=== PATIENT | female | born 1975 | race Hispanic/Latino ===

== ENCOUNTER 2019-09-06 11:34 | Inpatient (IN) | payer MEDICARE, BC, OTHER ==
[~2019-09-06] VITALS: Ht 160 cm; Wt 71.7 kg
--- NOTE | 2019-09-06 11:00 | NUR ---
received to rm aaox3, denies pain at this time, orient to rm, updated on poc voiced understanding, call light in reach will continue to monitor
[2019-09-06 11:45] VITALS: BP 115/60
[2019-09-06] MEDS ORDERED: DEXTROSE 5%/0.45% SOD CHL 1,000 ML IV ONE (12:00)
[2019-09-06 12:25] LABS: BASOPHILS % 0.5 % (0.0-1.0); EOSINOPHILS # (AUTO) 0.3 (0.0-0.4); EOSINOPHILS % 6.4 % (0.0-6.0); HEMATOCRIT 38.7 % (34.2-44.1); HEMOGLOBIN 12.4 g/dL (12.0-16.0); LYMPHOCYTES # (AUTO) 1.5 (1.0-3.2); LYMPHOCYTES % 33.6 % (18.0-39.1); MEAN CORPUSCULAR HEMOGLOBIN 31.5 pg (28-32); MEAN CORPUSCULAR VOLUME 98.2 fL (81-99); MONOCYTES # (AUTO) 0.3 (0.2-0.8); MONOCYTES % 6.4 % (4.4-11.3); NEUTROPHILS # (AUTO) 2.3 (2.1-6.9); NEUTROPHILS % 52.9 % (38.7-80.0); PLATELET COUNT 256 x10e3/uL (140-360); RED BLOOD COUNT 3.94 x10e6/uL (3.6-5.1); RED CELL DISTRIBUTION WIDTH 13.2 % (11.7-14.4)
[2019-09-06] MEDS ORDERED: ACETAMINOPHEN/CODEINE 300MG - 30MG TAB PO PRN (12:30)
[2019-09-06] MEDS ORDERED: ACETAMINOPHEN 325 MG TAB PO PRN (12:30)
[2019-09-06] MEDS ORDERED: GUAIFENESIN/DEXTROMETHORPHAN LIQD 5 ML UDC PO PRN (12:30)
[2019-09-06] MEDS ORDERED: ALBUTEROL SULFATE HFA 8GM INHALATION AEROSOL INH PRN (12:30)
[2019-09-06] MEDS ORDERED: ONDANSETRON HCL INJ 2MG/ML 2ML 2 MG/ML VIAL IV PRN (12:30)
[2019-09-06] MEDS ORDERED: HYDRALAZINE HCL 20 MG/ML VIAL IV PRN (12:30)
[2019-09-06 12:31] LABS: ALANINE AMINOTRANSFERASE 21 IU/L (0-55); ALBUMIN 3.3 g/dL (3.5-5.0); ALKALINE PHOSPHATASE 63 IU/L (40-150); ANION GAP 12.8 mmol/L (8-16); BLOOD UREA NITROGEN 17 mg/dL (7-26); BUN/CREATININE RATIO 18 (6-25); CALCIUM 8.5 mg/dL (8.4-10.2); CARBON DIOXIDE 24 mmol/L (22-29); CHLORIDE 109 mmol/L (98-107); CREATININE, SERUM 0.92 mg/dL (0.57-1.11); EST GLOMERULAR FILTRATION RATE > 60 ML/MIN (60-); GLUCOSE 90 mg/dL (74-118); POTASSIUM 3.8 mmol/L (3.5-5.1); SODIUM 142 mmol/L (136-145)
[2019-09-06] MEDS ORDERED: ADDERALL 10 MG10 MG PO (13:04)
[2019-09-06] MEDS ORDERED: ATIVAN1 MG PO ×2 (13:04)
[2019-09-06] MEDS ORDERED: COMBIVENT RESPIM4 GM IH (13:04)
[2019-09-06] MEDS ORDERED: BENZONATATE100 MG PO (13:04)
[2019-09-06] MEDS ORDERED: NASONEX17 GM (13:04)
[2019-09-06] MEDS ORDERED: WELLBUTRIN XL300 MG PO (13:04)
[2019-09-06] MEDS ORDERED: CYMBALTA30 MG PO (13:04)
[2019-09-06] MEDS ORDERED: GABAPENTIN300 MG PO (13:04)
[2019-09-06] MEDS ORDERED: TRAZODONE HCL50 MG PO (13:04)
[2019-09-06] MEDS ORDERED: SINGULAIR10 MG PO (13:04)
[2019-09-06] MEDS ORDERED: DESLORATADINE5 MG PO (13:04)
[2019-09-06 13:12] VITALS: BP 115/60
[2019-09-06] MEDS: AZITHROMYCIN 500MG/NS 250 ML 250 ML IV SCH (13:30)
[2019-09-06] MEDS ORDERED: LORAZEPAM 1 MG TAB PO PRN (13:45)
[2019-09-06] MEDS: CEFTRIAXONE SOD 1 GM/NS 50 ML 50 ML IV SCH (14:00)
[2019-09-06] MEDS ORDERED: LORAZEPAM 0.5 MG TAB PO PRN (14:15)
--- NOTE | 2019-09-06 14:34 | NUR ---
consult [id number]
[2019-09-06] MEDS ORDERED: GABAPENTIN 400 MG CAP PO SCH (15:00)
--- NOTE | 2019-09-06 15:29 | Consultation ---
DATE OF CONSULTATION: Pulmonary Critical Care Consultation CHIEF COMPLAINT: Persistent cough and dyspnea. HISTORY OF PRESENT ILLNESS: The patient is a 44-year-old woman. She has a history of prior gastric bypass surgery in 2008 as well as manic depressive illness. She denies any prior history of asthma or respiratory problems. For the past 2 weeks, she has noticed persistent cough. The cough is nonproductive. She also reports dyspnea. She went to see Dr. Galicia about 2 weeks ago and had a chest x-ray that showed pneumonia. She received antibiotics, but has not improved. She returned yesterday and had a CT scan of the chest that showed ground-glass opacities in the lower lobes with septal thickening in the "crazy paving" pattern. Her dyspnea has not improved. She still has a nonproductive cough. She denies any fevers. She had some possible weight loss over the past several weeks. PAST MEDICAL HISTORY: 1. Bipolar illness. 2. No prior history of asthma. 3. No prior history of sarcoidosis. PAST SURGICAL HISTORY: 1. Status post gastric bypass in 2008. 2. Status post breast augmentation. FAMILY HISTORY: History of diabetes and cerebrovascular disease. SOCIAL HISTORY: The patient has been an intermittent smoker over the years. She is not an active drinker. She does not have recent travel. ALLERGIES: THERE ARE NO KNOWN DRUG ALLERGIES. REVIEW OF SYSTEMS: She denies fever. She may have possible weight loss. She reports some cough. She denies chest pain. She has dyspnea on exertion. She does not complain of nausea or vomiting. She has no leg edema. PHYSICAL EXAMINATION: VITAL SIGNS: The patient is afebrile. The blood pressure is 115/60 and saturation is 99% on room air. The pulse is 86 and respiratory rate is 19. HEENT: Shows no facial swelling or erythema. CARDIAC: Reveals a regular rate and rhythm with normal S1 and S2. LUNGS: Auscultation of lungs shows clear breath sounds bilaterally. There is no wheezing. ABDOMEN: Soft, nontender. There is no rebound or guarding. EXTREMITIES: Show no leg edema or calf tenderness. There is no cyanosis or clubbing. SKIN: Shows no rashes. NEUROLOGIC: Shows no focal abnormalities. LABORATORY DATA: White blood cell count is 4.3 and hemoglobin is 12.4. The platelet count is 256. BUN to creatinine ratio is 17 to 0.92. The other electrolytes are within normal limits. Coronavirus is pending. RADIOGRAPHIC DATA: CT scan shows bilateral ground-glass opacities in the lower lobes. Possibilities include viral pneumonia, chronic interstitial lung disease or sarcoidosis. IMPRESSION: 1. Nonspecific interstitial pneumonitis in the lower lobes. 2. Prior gastric bypass surgery. 3. Manic depressive illness. PLAN: 1. Await COVID-19 results. 2. Continue current antibiotics. 3. If COVID-19 is negative, the patient will need an evaluation for sarcoidosis and atypical infections. Fredis Walker MD [facility]/MODL /[id number]
[2019-09-06 15:32] VITALS: BP 98/70
--- NOTE | 2019-09-06 16:15 | Consultation ---
DATE OF CONSULTATION: REASON FOR ADMISSION: Pneumonia. HISTORY OF PRESENT ILLNESS: This patient is a 44-year-old white female, who has been sick for this May with progressive shortness of breath and some cough. No specific fever that can be think of. The patient apparently has been sick for a couple months. She was smoking in April and March, then she quit and then she started to smoke again. She is coming through the emergency room with fever and chills and shortness of breath. The cough is getting progressively worse. She was sent here by her physician. The patient apparently had some psychiatric problems and she is on disability because of that according to her. The patient, who is currently lying in bed comfortably otherwise. Because we have middle of COVID-19, the patient is being admitted to COVID unit while we are awaiting the test for COVID-19. The patient was currently on Rocephin and azithromycin as mentioned above, Neurontin, Ativan, Desyrel, Cymbalta, Tylenol, and Pepcid. PAST MEDICAL HISTORY: Some psychiatric issues and peptic ulcer disease. PAST SURGICAL HISTORY: Denies. ALLERGIES: NKA. SOCIAL HISTORY: There is smoking, but she has tried to quit again. No drug abuse or alcohol abuse. FAMILY HISTORY: Otherwise noncontributory. REVIEW OF SYSTEMS: At the present time, HEENT: There is no headache, visual changes, or hearing changes. GI: There is no nausea. No vomiting. No diarrhea. CARDIAC: There is no arrhythmia. NEURO: No seizure activity. SKIN: There are no other rashes. LABORATORY DATA: Reviewed. It is still pending since I saw the patient immediately after she came from her physician's office, but we have a white count of 4.3, hemoglobin 12, and hematocrit 38. Her sodium 142, potassium 3.8, and creatinine 0.92. I did review the chart again couple hours later this evening for new data and her COVID-19 is still pending. PHYSICAL EXAMINATION: GENERAL: She is currently alert, oriented, does not seem to be in acute distress. VITAL SIGNS: Stable, currently afebrile. HEENT: Not icteric. NECK: Supple. CHEST: Few crackles at the bases. HEART: S1, S2. No S3, S4, or murmur. ABDOMEN: Soft. Bowel sounds present. EXTREMITIES: No edema. SKIN: No rash. IMPRESSION: 1. Shortness of breath and cough. Concerned about community-acquired pneumonia. Obtain blood cultures and chest x-ray. We will put her on Rocephin and azithromycin. 2. obtained coronavirus disease-19 PCR. We will keep on droplet isolation. Nasal swab was sent. 3. History of psychiatric disorder. 4. History of smoking. Discussed against with the patient to quit smoking. Further recommendation depending on the lab and x-ray finding and clinical progress. We will follow. MD GUSTABO Mcgregor/DIANAL /[id number]
[2019-09-06] MEDS: FAMOTIDINE 20 MG TAB PO SCH (16:30)
[2019-09-06] MEDS: GABAPENTIN 400 MG CAP PO SCH (16:35)
--- NOTE | 2019-09-06 16:37 | NUR ---
pt transferred to rm 298, report given to receiving rn, pt left in stable condition with all belongings.
--- NOTE | 2019-09-06 16:38 | NUR ---
Recvd patient from OBS unit via wheelchair. AAOx3, Denies any pain or SOB, ASSISTED HER TO BED, CALL LIGHT IN REACH
[2019-09-06] MEDS ORDERED: GABAPENTIN 300 MG CAP PO SCH (17:00)
--- NOTE | 2019-09-06 19:17 | Diagnostic Imaging Report ---
Examination: Single AP view of the chest. COMPARISON: None. INDICATION: Pneumonia IMPRESSION: Exam limited by soft tissue attenuation. 1. Lines and Tubes: None 2. Lungs are well-inflated. Patchy airspace opacity in the left lower lung, which may represent atelectasis or pneumonia, new from the clinical setting. Rest of the lungs is grossly clear. No effusion. 3. Cardiomediastinal silhouette is normal. Mild central pulmonary venous congestion. 4. No acute bony abnormalities. Signed by: Dr. Darryl Chong M.D. on 09/06/2019 7:14 PM
--- NOTE | 2019-09-06 19:27 | NUR ---
Received change of shift report from AM nurse. Walking rounds completed.
[2019-09-06 20:00] VITALS: BP 102/69
[2019-09-06] MEDS: ENOXAPARIN 30 MG/0.3 ML SYR SC SCH (20:35)
[2019-09-06] MEDS: TRAZODONE HCL 50 MG TAB PO SCH (21:00)
[2019-09-06] MEDS ORDERED: TRAZODONE HCL 50 MG TAB PO SCH (21:00)
[2019-09-06 21:10] VITALS: BP 102/69
[2019-09-07] VITALS (8 sets, daily range): BP systolic 93–106; BP diastolic 56–68
--- NOTE | 2019-09-07 00:35 | NUR ---
Patient received ativan and trazodone for sleep. Given as ordered by MD. Iv to right AC dry and intact. Fluids at 75cc/hr. Continue to monitor.
[2019-09-07] MEDS: CEFTRIAXONE SOD 1 GM/NS 50 ML 50 ML IV SCH ×2 (01:53→14:38)
--- NOTE | 2019-09-07 05:21 | NUR ---
Patient resting quitly at this time. Continue monitor.
[2019-09-07 06:20] LABS: BASOPHILS % 0.4 % (0.0-1.0); EOSINOPHILS # (AUTO) 0.3 (0.0-0.4); EOSINOPHILS % 7.5 % (0.0-6.0); HEMATOCRIT 35.2 % (34.2-44.1); HEMOGLOBIN 11.1 g/dL (12.0-16.0); LYMPHOCYTES # (AUTO) 2.2 (1.0-3.2); LYMPHOCYTES % 48.1 % (18.0-39.1); MEAN CORPUSCULAR HEMOGLOBIN 30.7 pg (28-32); MEAN CORPUSCULAR HGB CONC 31.5 g/dL (31-35); MEAN CORPUSCULAR VOLUME 97.5 fL (81-99); MONOCYTES # (AUTO) 0.4 (0.2-0.8); MONOCYTES % 8.2 % (4.4-11.3); NEUTROPHILS # (AUTO) 1.6 (2.1-6.9); NEUTROPHILS % 35.8 % (38.7-80.0); PLATELET COUNT 243 x10e3/uL (140-360); RED BLOOD COUNT 3.61 x10e6/uL (3.6-5.1); RED CELL DISTRIBUTION WIDTH 13.4 % (11.7-14.4)
[2019-09-07 06:40] LABS: ALANINE AMINOTRANSFERASE 17 IU/L (0-55); ALBUMIN 2.9 g/dL (3.5-5.0); ALBUMIN/GLOBULIN RATIO 1.1 (0.8-2.0); ALKALINE PHOSPHATASE 41 IU/L (40-150); ANION GAP 10.3 mmol/L (8-16); BLOOD UREA NITROGEN 16 mg/dL (7-26); BUN/CREATININE RATIO 22 (6-25); CALCIUM 8.2 mg/dL (8.4-10.2); CARBON DIOXIDE 21 mmol/L (22-29); CHLORIDE 112 mmol/L (98-107); CHOL/HDL RATIO 3.9 (3.0-3.6); CHOLESTEROL 178 MD/DL (0-199); CREATININE, SERUM 0.73 mg/dL (0.57-1.11); EST GLOMERULAR FILTRATION RATE > 60 ML/MIN (60-); GLUCOSE 87 mg/dL (74-118); HDL CHOLESTEROL 46 MG/DL (40-60); LDL CHOLESTEROL 115 MG/DL (60-130); POTASSIUM 3.3 mmol/L (3.5-5.1); SODIUM 140 mmol/L (136-145); TRIGLYCERIDES 83 MG/DL (0-149)
[2019-09-07 07:00] LABS: THYROID STIMULATING HORMONE 0.823 uIU/mL (0.350-4.940)
--- NOTE | 2019-09-07 07:10 | NUR ---
Bedside shift report, patient lying in bed with eyes closed. Respiration even and unlabored without SOB. Call light in reach
[2019-09-07] MEDS: FAMOTIDINE 20 MG TAB PO SCH ×3 (07:30→16:30)
[2019-09-07] MEDS: DULOXETINE HCL 30 MG DELAYED RELEASE PO SCH (09:33)
[2019-09-07] MEDS: ENOXAPARIN 30 MG/0.3 ML SYR SC SCH ×2 (09:34→20:49)
[2019-09-07] MEDS: GABAPENTIN 400 MG CAP PO SCH ×2 (09:34→17:42)
--- NOTE | 2019-09-07 11:58 | Progress Note ---
DATE: SUBJECTIVE: The patient is seen and evaluated with the nurse in her room. Available labs and notes reviewed. Lengthy discussion with the patient, tells me that she has been coughing for couple of months and progressively getting worse. She denied any fever, however, shortness of breath started to get worse. Therefore, the patient came to the hospital. Has a complicated past medical history including bipolar, which has exacerbated for past couple days secondary to loss of her mom and communication issue she has with her father. She has started drinking for past year and started smoking in June after 17 years of being away from smoking, so the patient is admitted. REVIEW OF SYSTEMS: The patient states that her condition may be may be slightly has improved as far as shortness of breath and cough. She is currently on room air without any supplements of oxygen. No nausea, vomiting, fever, chills, or chest pain. PHYSICAL EXAMINATION: VITAL SIGNS: Temperature 97.7, pulse is 84, respirations 16, and blood pressure 102/64. GENERAL: Very pleasant, alert and oriented, comfortable in bed, softly spoken. CV: S1 and S2. CHEST: Equal expansion. Decreased breath sounds. Cough with a deep breath. ABDOMEN: Soft and obese, nontender. HEENT: Moist. No pallor. No JVD. EXTREMITIES: Moves all. No acute finding. MEDICATIONS: Reviewed and as far as Infectious Disease point of view, the patient is on Zithromax and Rocephin. LABORATORY STUDIES: White blood cells of 4.53, hemoglobin 11.1, and platelet 243. Sodium 140, potassium 3.3, and creatinine 0.73. Serology; coronavirus PCR 09/06/2019, not detected. Influenza A and B antigen are negative. RADIOLOGY STUDIES: She had outside CAT scan per my discussion with the patient and attending, however, chest x-ray yesterday from here shows no acute bony abnormalities. Her lungs are well infiltrated. Patchy airspace opacity in the left lower lungs, which may represent atelectasis or pneumonia. New from the clinical setting. Rest of the lungs are grossly clear. No effusion. Also showed cardiomediastinal silhouette is normal, mild central pulmonary venous congestion. ASSESSMENT AND PLAN: 1. Shortness of breath and cough with concern of community-acquired pneumonia. Chest x-ray as mentioned above. Continue with antibiotics. No microbiology studies at this point available. We will get blood culture as was recommended by Dr. Bai. Coronavirus PCR was negative as mentioned above. 2. Bipolar disorder. 3. The patient says that she never ran fever. 4. Recently started drinking. 5. Recently started smoking. 6. Continue with the oxygen as needed. 7. Continued with antibiotics. 8. PT/OT. 9. Monitor the patient clinically and follow with the labs. Currently, no acute distress. Discussed with Dr. Bai in details. Please refer to chart for more information. Dictated by Vinay Le) HUMBLE Talbot Rebeca Bai MD /MODL /[id number]
[2019-09-07] MEDS ORDERED: ONDANSETRON HCL 4 MG ORAL DISINTEGRATING TAB PO PRN (12:30)
[2019-09-07] MEDS: AZITHROMYCIN 500MG/NS 250 ML 250 ML IV SCH (12:37)
[2019-09-07] MEDS ORDERED: POTASSIUM CHLORIDE 20 MEQ TAB CR PO ONE (12:45)
[2019-09-07] MEDS ORDERED: SODIUM CHLORIDE 0.9% 250ML 250 ML ONE (12:47)
--- NOTE | 2019-09-07 17:17 | Diagnostic Imaging Report ---
EXAMINATION: CT of the abdomen and pelvis with contrast. TECHNIQUE: Spiral CT images of the abdomen and pelvis were performed from the lung bases to the lesser trochanters after the intravenous administration of 100 cc of Isovue 370 and the oral administration of water. Coronal and sagittal reformatted images were obtained. COMPARISON: None. CLINICAL HISTORY:History of pneumonia diagnosed on CT 2 days ago. Rule out abdominal infection DISCUSSION: ABDOMEN/PELVIS: LOWER THORAX:Bilateral lower lobe and to a lesser extent lingular groundglass opacities, which may represent the patient's known pneumonia and/or atelectasis. No effusion. Bilateral breast implants are partially visualized. HEPATOBILIARY: No focal hepatic lesions. No intra or extrahepatic biliary ductal dilation. GALLBLADDER: No radio-opaque stones or sludge. No wall thickening. SPLEEN: No splenomegaly. PANCREAS: No focal masses or ductal dilatation. ADRENALS: No adrenal nodules. KIDNEYS/URETERS: No hydronephrosis, stones, or solid mass lesions. PELVIC ORGANS/BLADDER: Bladder is unremarkable. Uterus is absent. No adnexal masses. PERITONEUM/RETROPERITONEUM: No free air or fluid. LYMPH NODES: No intra-abdominal, retroperitoneal, pelvic or inguinal lymphadenopathy. VESSELS: The celiac trunk,superior and inferior mesenteric and bilateral renal arteries are patent The portal, superior mesenteric and splenic veins are patent. GI TRACT: No bowel dilation or evidence of obstruction. Moderate retained stool in the colon. Thickening. Surgical sutures are noted in stomach fundus and body. Small hiatal hernia. BONES AND SOFT TISSUE: No aggressive lytic or suspicious sclerotic lesions. Air foci in the subcutaneous tissues of the right anterior pelvis (for example series 2, image 64), likely represent subcutaneous injection sites. IMPRESSION: 1. No acute abdominal pelvic abnormalities. No free fluid or fluid collections. 2. Findings in bilateral lower lobes and to a lesser extent lingula may reflect the patient's known bilateral pneumonia and/or superimposed atelectasis Signed by: Dr. Darryl Chong M.D. on 09/07/2019 5:14 PM
[2019-09-07] MEDS ORDERED: IOPAMIDOL 370 MG/ML 200 ML INFUS..BTL INJ ONE (19:00)
[2019-09-07] MEDS ORDERED: SODIUM CHLORIDE 0.9% 50ML 50 ML ONE (19:00)
--- NOTE | 2019-09-07 19:30 | NUR ---
patient received awake, alert, lying quietly in bed. no c/o pain noted. pm assessment complete. patient instructed to call for assistance when needed.
[2019-09-07] MEDS: TRAZODONE HCL 50 MG TAB PO SCH (20:49)
[2019-09-07] MEDS: LORAZEPAM 1 MG TAB PO PRN (20:55)
[2019-09-08] VITALS (8 sets, daily range): BP systolic 84–104; BP diastolic 56–76
[2019-09-08] MEDS: CEFTRIAXONE SOD 1 GM/NS 50 ML 50 ML IV SCH ×2 (01:46→15:38)
[2019-09-08 06:33] LABS: BASOPHILS % 0.6 % (0.0-1.0); EOSINOPHILS # (AUTO) 0.3 (0.0-0.4); EOSINOPHILS % 6.3 % (0.0-6.0); HEMATOCRIT 37.4 % (34.2-44.1); HEMOGLOBIN 11.7 g/dL (12.0-16.0); LYMPHOCYTES # (AUTO) 1.8 (1.0-3.2); LYMPHOCYTES % 37.9 % (18.0-39.1); MEAN CORPUSCULAR HEMOGLOBIN 31.1 pg (28-32); MEAN CORPUSCULAR HGB CONC 31.3 g/dL (31-35); MEAN CORPUSCULAR VOLUME 99.5 fL (81-99); MONOCYTES # (AUTO) 0.3 (0.2-0.8); MONOCYTES % 7.2 % (4.4-11.3); NEUTROPHILS # (AUTO) 2.3 (2.1-6.9); NEUTROPHILS % 47.8 % (38.7-80.0); PLATELET COUNT 239 x10e3/uL (140-360); RED BLOOD COUNT 3.76 x10e6/uL (3.6-5.1); RED CELL DISTRIBUTION WIDTH 13.2 % (11.7-14.4)
[2019-09-08 07:06] LABS: ANION GAP 10.4 mmol/L (8-16); BLOOD UREA NITROGEN 13 mg/dL (7-26); BUN/CREATININE RATIO 20 (6-25); CALCIUM 8.1 mg/dL (8.4-10.2); CARBON DIOXIDE 20 mmol/L (22-29); CHLORIDE 115 mmol/L (98-107); CREATININE, SERUM 0.65 mg/dL (0.57-1.11); EST GLOMERULAR FILTRATION RATE > 60 ML/MIN (60-); GLUCOSE 86 mg/dL (74-118); POTASSIUM 3.4 mmol/L (3.5-5.1); SODIUM 142 mmol/L (136-145)
--- NOTE | 2019-09-08 07:06 | NUR ---
Received bedside shift report with patient lying in bed with eyes closed. Respiration even and unlabored without SOB. Call light in reach.
[2019-09-08] MEDS: GABAPENTIN 400 MG CAP PO SCH ×2 (08:38→18:11)
[2019-09-08] MEDS: DULOXETINE HCL 30 MG DELAYED RELEASE PO SCH (08:38)
[2019-09-08] MEDS: BUPROPION HCL 150 MG TABCR PO SCH (08:38)
[2019-09-08] MEDS: ENOXAPARIN 30 MG/0.3 ML SYR SC SCH ×2 (08:38→21:00)
[2019-09-08] MEDS ORDERED: POTASSIUM CHLORIDE 20 MEQ TAB CR PO ONE (12:00)
--- NOTE | 2019-09-08 12:37 | Progress Note ---
DATE: SUBJECTIVE: The patient is seen and evaluated. Available labs and notes reviewed. REVIEW OF SYSTEMS: Unable to obtain review of systems secondary to the patient not talking with me today. Apparently, she has not been talking with antibody and the patient has history of bipolar disorder. She got her head under the blanket and does not want to be bothered. PHYSICAL EXAMINATION: VITAL SIGNS: Temperature is 97.8, pulse is 68, respiration 16, blood pressure 95/59. GENERAL: No obvious acute finding. Physical exam is limited to the patient's compliance. Moves all extremities. No acute distress. LUNGS: No labored breathing. MEDICATIONS: Medications list reviewed. As far as Infectious Disease point of view, the patient is on Rocephin and Zithromax. LABORATORY STUDIES: White count of 4.75, hemoglobin 11.7, platelet 239. Sodium 142, potassium 3.4, creatinine 0.65. Serology; leong virus PCR not detected on 09/06/2019. Influenza type AB antigen negative on 09/06/2019. Microbiology blood cultures negative. RADIOLOGY STUDIES: CT of abdomen and pelvis from yesterday showed no acute abdominal pelvic abnormalities. No free fluid or fluid collection. Findings in the bilateral lower lobes and to the lesser extent may reflect the patient's known bilateral pneumonia and/or superimposed atelectasis. ASSESSMENT AND PLAN: 1. Shortness of breath and cough. 2. Concerning community-acquired pneumonia. Please see the CT scan above. 3. Bipolar disorder. 4. Alcohol abuse. 5. Tobacco smoker. 6. Debility. 7. PT/OT. 8. Continue with antibiotics as mentioned above, the patient is going to follow up with the labs. The patient wants to stay one more day before she gets discharged. Discussed with nursing. No new events. Please refer to chart for more information. Discussed with Dr. Bai in details. Thank you for this dictation. Dictated by Vinay Talbot PA-C (Al) Rebeca Bai MD /MODL /[id number]
[2019-09-08] MEDS: AZITHROMYCIN 500MG/NS 250 ML 250 ML IV SCH (12:41)
[2019-09-08] MEDS: FAMOTIDINE 20 MG/2 ML VIAL IV SCH ×2 (12:41→21:00)
--- NOTE | 2019-09-08 16:45 | NUR ---
Patient ambulates more than 400 feet without SOB. O2 sat 96 % room air. Denies chest discomfort and SOB.
--- NOTE | 2019-09-08 18:19 | Progress Note ---
DATE: SUBJECTIVE: The patient feels better. She has less dyspnea. She is able to walk without dyspnea. She has less cough. She has no fever. PHYSICAL EXAMINATION: VITAL SIGNS: The blood pressure is 94/56 and saturation is 98%. Pulse is 57. HEENT: Shows no facial swelling or erythema. CARDIAC: Reveals regular rate and rhythm with normal S1 and S2. LUNGS: Auscultation of lungs reveals clear breath sounds bilaterally. There is no wheezing. ABDOMEN: Soft and nontender. There is no rebound or guarding. EXTREMITIES: Shows no leg edema or calf tenderness. IMPRESSION: 1. Atypical pneumonia. 2. Prior psychiatric history. 3. Prior gastric bypass surgery. PLAN: 1. The patient should complete outpatient antibiotics. 2. The patient will need a repeat CT scan in 4 weeks. This is atypical pneumonia, the infiltrates on CT scan should improve. If they persist, she will need an evaluation for other possible etiologies. MD SINCERE Macias/LUZ /[id number]
--- NOTE | 2019-09-08 18:58 | NUR ---
Report given to rn shift mgr. Respiration even and unlabored without SOB. Denies pain. Call light in reach.
--- NOTE | 2019-09-08 19:10 | NUR ---
patient received awake, alert, lying quietly in bed. no c/o pain noted. pm assessment complete. patient instructed to call for assistance when needed.
[2019-09-08] MEDS: LORAZEPAM 1 MG TAB PO PRN (21:00)
[2019-09-08] MEDS: TRAZODONE HCL 50 MG TAB PO SCH (21:00)
[2019-09-09] MEDS: CEFTRIAXONE SOD 1 GM/NS 50 ML 50 ML IV SCH ×2 (01:08→15:00)
[2019-09-09 01:26] VITALS: BP 103/71
[2019-09-09 05:51] VITALS: BP 92/60
[2019-09-09 07:07] LABS: BASOPHILS % 0.4 % (0.0-1.0); EOSINOPHILS # (AUTO) 0.3 (0.0-0.4); EOSINOPHILS % 5.9 % (0.0-6.0); HEMATOCRIT 36.3 % (34.2-44.1); HEMOGLOBIN 11.8 g/dL (12.0-16.0); LYMPHOCYTES # (AUTO) 1.5 (1.0-3.2); LYMPHOCYTES % 32.2 % (18.0-39.1); MEAN CORPUSCULAR HEMOGLOBIN 31.4 pg (28-32); MEAN CORPUSCULAR HGB CONC 32.5 g/dL (31-35); MEAN CORPUSCULAR VOLUME 96.5 fL (81-99); MONOCYTES # (AUTO) 0.3 (0.2-0.8); MONOCYTES % 7.3 % (4.4-11.3); NEUTROPHILS # (AUTO) 2.5 (2.1-6.9); PLATELET COUNT 243 x10e3/uL (140-360); RED BLOOD COUNT 3.76 x10e6/uL (3.6-5.1); RED CELL DISTRIBUTION WIDTH 13.2 % (11.7-14.4)
[2019-09-09 07:27] LABS: ALANINE AMINOTRANSFERASE 18 IU/L (0-55); ALBUMIN/GLOBULIN RATIO 1.1 (0.8-2.0); ALKALINE PHOSPHATASE 48 IU/L (40-150); ANION GAP 9.4 mmol/L (8-16); BLOOD UREA NITROGEN 10 mg/dL (7-26); BUN/CREATININE RATIO 16 (6-25); CALCIUM 8.3 mg/dL (8.4-10.2); CARBON DIOXIDE 21 mmol/L (22-29); CHLORIDE 114 mmol/L (98-107); CREATININE, SERUM 0.61 mg/dL (0.57-1.11); EST GLOMERULAR FILTRATION RATE > 60 ML/MIN (60-); GLUCOSE 94 mg/dL (74-118); MAGNESIUM 1.8 MG/DL (1.3-2.1); POTASSIUM 3.4 mmol/L (3.5-5.1); SODIUM 141 mmol/L (136-145)
--- NOTE | 2019-09-09 07:30 | NUR ---
PATIENT IN BED RESTING WITH EYES CLOSED, NO DISTRESS NOTED. TELEMETRY BOX IN PLACE. BED IN LOWER POSITION, CALL LIGHT AT REACH.
[2019-09-09 08:00] VITALS: BP 99/67
[2019-09-09] MEDS ORDERED: AMPHET ASP PO SCH (09:00)
[2019-09-09] MEDS ORDERED: D AMPHET PO SCH (09:00)
[2019-09-09] MEDS ORDERED: AMPHET PO SCH (09:00)
[2019-09-09] MEDS: ENOXAPARIN 30 MG/0.3 ML SYR SC SCH (09:07)
[2019-09-09] MEDS: DULOXETINE HCL 30 MG DELAYED RELEASE PO SCH (09:07)
[2019-09-09] MEDS: GABAPENTIN 400 MG CAP PO SCH (09:07)
[2019-09-09] MEDS: BUPROPION HCL 150 MG TABCR PO SCH (09:07)
[2019-09-09] MEDS: FAMOTIDINE 20 MG/2 ML VIAL IV SCH (09:07)
--- NOTE | 2019-09-09 09:52 | NUR ---
CALL TO EMELI VALENCIA'S OFFICE TO CHECK IF HOME IV ABX ARRANGED. STATES SHE HAD NOT RECEIVED ANY ORDERS, BUT WILL CHECK Kareen VALENCIA.
--- NOTE | 2019-09-09 10:38 | Progress Note ---
DATE: SUBJECTIVE: The patient is seen and evaluated. Available labs and notes reviewed. Discussed with the nurse. No new events overnight. The patient states that she is ready to go home today. REVIEW OF SYSTEMS: No nausea, vomiting, fever, chills, chest pain, shortness of breath. Feels better. PHYSICAL EXAMINATION: VITAL SIGNS: Temperature 97.3, pulse 57, respiration 18, and blood pressure 92/60. GENERAL: Alert and oriented. Mood much better today. CV: S1 and S2. CHEST: Equal expansion. Clear to auscultation. No acute distress. ABDOMEN: Soft and nontender. No distention. HEENT: Moist. No pallor. No JVD. EXTREMITIES: Moves all. No acute distress. MEDICATIONS: Medication list reviewed and as far as Infectious Disease point of view, the patient is on Rocephin. LABORATORY STUDIES: White blood cells of 4.54, hemoglobin 11.8, and platelet 243. Sodium 141, potassium 3.4, and creatinine 0.61. Serology; coronavirus PCR not detected, 09/06/2019. Influenza type A and B antigen negative on 09/06/2019. MICROBIOLOGY: Blood culture negative, 09/07/2019. RADIOLOGY STUDIES: No new radiology studies available. CT of abdomen and pelvis on 09/07/2019, showed no acute abdominal pelvic abnormalities. ASSESSMENT AND PLAN: 1. Pneumonia. 2. Shortness of breath and cough, resolved. 3. Bipolar disorder. 4. Debility. 5. Alcohol and tobacco use. 6. The patient states that she is ready to go home. The patient is currently on Rocephin. She will be going home to her father and her son in the house, seems like she has a good support from the son per my discussion with the patient. Discharge plan noted. Discussed with Dr. Bai in details. Please refer to chart for more information. Dictated by Vinay Talbot PA-C (Al) Rebeca Bai MD /MODL /[id number]
[2019-09-09] MEDS ORDERED: POTASSIUM CHLORIDE 20 MEQ TAB CR PO SCH (11:30)
--- NOTE | 2019-09-09 11:44 | NUR ---
CONSENT SIGNED FOR MIDLINE PLACEMENT. RADIOLOGY CALLED.
[2019-09-09 11:50] VITALS: BP 126/89
--- NOTE | 2019-09-09 12:23 | NUR ---
CALL RECEIVED FROM KISHORE SAINZ DR.. STATES THE PT IS COVERED AT 100%. STATES SHE WILL ORDER THE DRUGS ONCE SHE IS NOTIFIED THE PT IS DC'ING HOME. WILL F/U W PAULA.
[2019-09-09] MEDS: AZITHROMYCIN 500MG/NS 250 ML 250 ML IV SCH (12:29)
[2019-09-09] MEDS ORDERED: CEFTRIAXONE2 G1 IV (13:36)
--- NOTE | 2019-09-09 17:00 | NUR ---
PATIENT DISCHARGED HOME. DISCHARGE INSTRUCTIONS AND FOLLOW UP GIVEN TO PATIENT, SHE VERBALIZED UNDERSTANDING. IV TO RIGHT AC REMOVED WITH TIP INTACT. ALL PERSONAL ITEMS TAKEN WITH PATIENT. LEFT UNIT PER WHEEL CHAIR TO FRONT LOBBY IN STABLE CONDITION.
--- NOTE | 2019-09-13 11:08 | Discharge Summary ---
ADMISSION DIAGNOSIS: 1. Pneumonia present on admission, failed outpatient treatment with Levaquin. 2. Bipolar depression. DISCHARGE DIAGNOSES: 1. Pneumonia present on admission, failed outpatient treatment with Levaquin. 2. Bipolar depression. 3. Rule out COVID-19. HISTORY: Bipolar depression. SURGICAL HISTORY: Sleeve gastrectomy, tubal ligation, and breast augmentation. FAMILY HISTORY: The patient's dad had diabetes and a stroke. SOCIAL HISTORY: The patient admits to quitting smoking 4 weeks ago. HOSPITAL COURSE: A 44-year-old female admits with complaints of dry cough, chest congestion, and shortness of breath for a week. She took Levaquin for 5 days, but the symptoms did not improve. She had an outpatient CT chest, which showed pneumonia. On admission, her chest x-ray showed patchy airspace opacity in the left lower lung. Cardiomediastinal silhouette normal. No bony abnormality. CT of the abdomen and pelvis showed no acute abdominal pelvic abnormalities. Blood culture was negative. Coronavirus negative. Flu negative. After few days of IV antibiotic, the patient is feeling better. She will have a midline placed. We will discharge home with 7 additional days of IV Rocephin per Infectious Disease recommendation. She was advised to follow up in [address] of the chest per Pulmonology recommendation. The patient understands discharge instructions and agrees to plan. Vital signs are stable. The patient is afebrile. Dictated by Nicolette Alatorre NP MD HUANG King/LUZ /[id number]
== END 2019-09-09 16:53 | disposition home or self-care (01) | DRG 195 ==
LOC: IMCU 11:36 → MED/SURG3 16:45 → OBSVTOIN 09-08 11:41
PROVIDERS: ADMIT Internal Medicine; ATTEND Internal Medicine
DX: J18.9 Pneumonia, unspecified organism (principal); F31.9 Bipolar disorder, unspecified; Z11.59 Encounter for screening for other viral diseases; Z98.84 Bariatric surgery status; F17.200 Nicotine dependence, unspecified, uncomplicated; F10.10 Alcohol abuse, uncomplicated
CPT/HCPCS: 36415; 36568; 71045; 74177; 80048; 80053; 80061; 82164; 83036; 83735; 84443; 85025; 87040; 87400; 87635; 93041; 93306; G0378; J0360; J0456; J0696; J1650; J2405; J7050; Q9967